=== PATIENT | female | born 1955 | race Caucasian/White ===

== ENCOUNTER 2020-04-10 05:51 | Day surgery (SDC) | payer MEDICARE, BC, OTHER ==
[2020-04-10] MEDS ORDERED: oxyCODONE ER 10 MG TAB.ER PO SCH (06:00)
[2020-04-10] MEDS ORDERED: Acetaminophen 325 MG Tab PO SCH (06:00)
[2020-04-10] MEDS ORDERED: Pregabalin 25 MG Cap PO SCH (06:00)
[2020-04-10] MEDS ORDERED: Magnesium Hydroxide 400 MG/5 ML Susp 30 ML Cup PO PRN (06:34)
[2020-04-10] MEDS ORDERED: Morphine 2 MG/ML SYRINGE IVPUSH PRN (06:34)
[2020-04-10] MEDS ORDERED: Bisacodyl 5 MG Tab PO PRN (06:34)
[2020-04-10] MEDS ORDERED: Sennosides 8.6 MG Tab PO PRN (06:34)
[2020-04-10] MEDS ORDERED: Ondansetron 4 MG/2 ML SDV IVPUSH PRN ×2 (06:34→08:07)
[2020-04-10] MEDS ORDERED: Naloxone 0.4 MG/ML SDV IVPUSH PRN (06:34)
[2020-04-10] MEDS ORDERED: Cyclobenzaprine 10 MG Tab PO PRN (06:34)
[2020-04-10] MEDS ORDERED: Famotidine 20 MG Tab PO SCH (06:45)
[2020-04-10] MEDS ORDERED: Sodium Chloride 0.9% 10 ML Syringe FLUSH PRN (07:00)
[2020-04-10] MEDS ORDERED: Lidocaine 1%/Sod Bicarbonate in NS 8.4% 1 ML Syringe IDERM PRN (07:00)
[2020-04-10] MEDS ORDERED: Lactated Ringers 1,000 ML IV SCH (07:00)
[2020-04-10] MEDS ORDERED: Ondansetron 4 MG/2 ML SDV ONE (07:15)
[2020-04-10] MEDS ORDERED: Midazolam 1 MG/ML 2 ML SDV ONE (07:15)
[2020-04-10] MEDS ORDERED: Ketamine 500 mg/10 ML MDV ONE (07:15)
[2020-04-10] MEDS ORDERED: fentaNYL 100 MCG/2 ML SDV ONE (07:15)
[2020-04-10] MEDS ORDERED: ceFAZolin 1 GM Vial ONE (07:15)
[2020-04-10] MEDS ORDERED: Dexamethasone 4 MG/ML 5 ML MDV ONE (07:15)
[2020-04-10] MEDS ORDERED: Lidocaine 1% 4 ML ONE (07:15)
[2020-04-10] MEDS ORDERED: Propofol 200 MG/20 ML SDV ONE (07:15)
[2020-04-10] MEDS ORDERED: Lactated Ringers 1,000 ML ONE (07:51)
[2020-04-10] MEDS: Iodine/Sodium Iodide 2% Tincture 30 ML Bottle ONE ×2 (08:03→08:07)
[2020-04-10] MEDS: ceFAZolin 1 GM Vial ONE ×2 (08:04→08:09)
[2020-04-10] MEDS: Bupivacaine 0.25% 10 ML SDV ONE ×2 (08:04→08:14)
[2020-04-10] MEDS: Morphine 8 MG, EPINEPHrine 0.3 MG, Cefuroxime 750 MG, Ketorolac 30 MG, Sodium Chloride ... PRN ×10 (08:05→08:15)
[2020-04-10] MEDS: Vancomycin 1 GM SDV ONE ×2 (08:05→08:16)
[2020-04-10] MEDS ORDERED: fentaNYL 100 MCG/2 ML SDV IVPUSH PRN (08:07)
[2020-04-10] MEDS ORDERED: HYDROmorphone 0.5 MG/0.5 ML Syringe IVPUSH PRN (08:07)
--- NOTE | 2020-04-10 08:10 | PCM.PREANE ---
Preanesthetic Assessment - Procedure Proposed Procedure: Left Total Knee Arthroplasty - Anesthesia/Transfusion/Family Hx Anesthesia History: Prior Anesthesia Without Reaction Family History of Anesthesia Reaction: No - Review of Systems General: No Symptoms Pulmonary: No Symptoms Cardiovascular: No Symptoms Gastrointestinal: No Symptoms Neurological: No Symptoms Other: Reports: None (Osteoarthritis, Obesity BMI 30) - Physical Assessment NPO Status Date: 04/09/20 NPO Status Time: 23:00 Vital Signs: Last Vital Signs Temp 36.2 C 04/10/20 06:00 Pulse 61 04/10/20 06:00 Resp 16 04/10/20 06:00 BP 114/64 04/10/20 06:00 Pulse Ox 94 L 04/10/20 06:00 Height: 1.57 m Weight: 74.389 kg ASA Class: 2 Mental Status: Alert & Oriented x3 Airway Class: Mallampati = 2 Dentition: Reports: Normal Dentition Thyro-Mental Finger Breadths: 2 Mouth Opening Finger Breadths: 3 ROM/Head Extension: Full Lungs: Clear to Auscultation, Normal Respiratory Effort Cardiovascular: Regular Rate, Regular Rhythm - Lab Values: Laboratory Last Values COVID-19 PCR Not detected (NOT DETECT) 04/06/20 09:38 MRSA (PCR) Negative 03/29/20 10:49 - Allergies Allergies/Adverse Reactions: Allergies Allergy/AdvReac Type Severity Reaction Status Date / Time No Known Allergies Allergy Verified 04/10/20 06:24 - Anesthesia Plan Pre-Op Medication Ordered: Anxiolytic - Acknowledgements Anesthesia Type Planned: Spinal (Post Operative Adductor Canal Block for Post Operative pain releif) Pt an Appropriate Candidate for the Planned Anesthesia: Yes Alternatives and Risks of Anesthesia Discussed w Pt/Guardian: Yes Pt/Guardian Understands and Agrees with Anesthesia Plan: Yes PreAnesthesia Questionnaire HEENT History: Reports: Cataract, Glaucoma Cardiovascular History: Reports: None Respiratory History: Reports: None Gastrointestinal History: Reports: Hemorrhoids Genitourinary History: Reports: None 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: Musculoskeletal History: Reports: Osteoarthritis Neurological History: Reports: None Psychiatric History: Reports: None Endocrine/Metabolic History: Reports: None Hematologic History: Reports: None Immunologic History: Reports: None Oncologic (Cancer) History: Reports: None Dermatologic History: Reports: None - Past Surgical History Head Surgeries/Procedures: Reports: None HEENT Surgical History: Reports: Adenoidectomy, LASIK, Tonsillectomy Cardiovascular Surgical History: Reports: None Respiratory Surgical History: Reports: None GI Surgical History: Reports: Colonoscopy Female Surgical History: Reports: None Male Surgical History: Reports: None Endocrine Surgical History: Reports: None Neurological Surgical History: Reports: None Musculoskeletal Surgical History: Reports: Carpal Tunnel, Other (See Below) Other Musculoskeletal Surgeries/Procedures:: bunion surgery Oncologic Surgical History: Reports: None Dermatological Surgical History: Reports: None - SUBSTANCE USE Smoking Status *Q: Former Smoker Recreational Drug Use History: No - HOME MEDS Home Medications: Home Meds Celecoxib 200 mg PO DAILY PRN 04/07/20 [History] Cholecalciferol (Vitamin D3) [Vitamin D3] 5,000 unit PO DAILY 04/07/20 [History] Latanoprost 1 drop EYEBOTH DAILY 04/07/20 [History] Melatonin 10 mg PO BEDTIME 04/07/20 [History] - CURRENT (IN HOUSE) MEDS Current Meds: Current Medications Acetaminophen (Tylenol) 975 mg PO ONETIME ANDREIA Stop: 04/10/20 14:00 Last Admin: 04/10/20 06:05 Dose: 975 mg Documented by: Aspirin (Ecotrin) 325 mg PO BID [facility] Bisacodyl (Dulcolax) 5 mg PO DAILY PRN PRN Reason: Constipation Cholecalciferol (Vitamin D3) 5,000 unit PO DAILY [facility] Morphine Sulfate 8 mg/Epinephrine HCl 0.3 mg/Cefuroxime Sodium 750 mg/Ketorolac Tromethamine 30 mg/Sodium Chloride 7.9 ml 0 mg .XX ASDIRECTED PRN PRN Reason: Pain Stop: 04/10/20 12:00 Last Admin: 04/10/20 08:05 Dose: 788.3 mg Documented by: Cyclobenzaprine HCl (Flexeril) 10 mg PO TID PRN PRN Reason: Spasms Docusate Sodium (Colace) 100 mg PO BID [facility] Famotidine (Pepcid) 20 mg PO Q12H [facility] Lactated Ringer's (Ringers, Lactated) 1,000 mls @ 125 mls/hr IV ASDIRECTED ANDREIA Stop: 04/10/20 23:00 Last Admin: 04/10/20 06:24 Dose: 125 mls/hr Documented by: Cefazolin Sodium/Dextrose 2 gm (/ Premix) 50 mls @ 100 mls/hr IV Q8H [facility] Stop: 04/10/20 23:14 Ketorolac Tromethamine (Toradol) 15 mg IVPUSH Q6H PRN PRN Reason: Pain Latanoprost (Xalatan 0.005% Ophth Soln) 0 ml EYEBOTH DAILY [facility] Lidocaine/Sodium Bicarbonate (Buffered Lidocaine 1% In Ns 8.4%) 0.25 ml IDERM ONETIME PRN PRN Reason: Prior to IV Start Stop: 04/10/20 18:00 Last Admin: 04/10/20 06:25 Dose: 0.25 ml Documented by: Magnesium Hydroxide (Milk Of Magnesia) 30 ml PO BID PRN PRN Reason: Constipation Morphine Sulfate (Morphine) 2 mg IVPUSH Q2H PRN PRN Reason: Breakthrough Pain Naloxone HCl (Narcan) 0.1 mg IVPUSH Q5M PRN PRN Reason: Oversedation Ondansetron HCl (Zofran) 4 mg IVPUSH Q6H PRN PRN Reason: Nausea/Vomiting Oxycodone HCl (Oxycontin) 10 mg PO ONETIME [facility] Stop: 04/10/20 14:00 Last Admin: 04/10/20 06:04 Dose: 10 mg Documented by: Oxycodone/Acetaminophen (Percocet 325-5 Mg) 1 - 2 tab PO Q4H PRN PRN Reason: Pain Pregabalin (Lyrica) 50 mg PO ONETIME [facility] Stop: 04/10/20 14:00 Last Admin: 04/10/20 06:04 Dose: 50 mg Documented by: Senna (Senna) 8.6 mg PO BID PRN PRN Reason: Constipation Sodium Chloride (Saline Flush) 10 ml FLUSH ASDIRECTED PRN PRN Reason: Keep Vein Open Stop: 04/10/20 18:00 Discontinued Medications Bupivacaine HCl (Sensorcaine-Mpf 0.25%) Confirm Administered Dose 30 ml .ROUTE .STK-MED ONE Stop: 04/10/20 06:14 Last Admin: 04/10/20 08:04 Dose: 30 ml Documented by: Cefazolin Sodium (Ancef) Confirm Administered Dose 2 gm .ROUTE .STK-MED ONE Stop: 04/10/20 06:14 Last Admin: 04/10/20 08:04 Dose: 2 gm Documented by: Cefazolin Sodium (Ancef) Confirm Administered Dose 2 gm .ROUTE .STK-MED ONE Stop: 04/10/20 07:16 Dexamethasone (Dexamethasone) Confirm Administered Dose 20 mg .ROUTE .STK-MED ONE Stop: 04/10/20 07:16 Famotidine (Pepcid) 20 mg PO Q12H [facility] Fentanyl (Sublimaze) Confirm Administered Dose 100 mcg .ROUTE .STK-MED ONE Stop: 04/10/20 07:16 Lidocaine HCl (Xylocaine-Mpf 1%) Confirm Administered Dose 4 mls @ as directed .ROUTE .STK-MED ONE Stop: 04/10/20 07:16 Lactated Ringer's (Ringers, Lactated) Confirm Administered Dose 1,000 mls @ as directed .ROUTE .ST-MED ONE Stop: 04/10/20 07:52 Iodine (Iodine 2% Mild Tincture) Confirm Administered Dose 30 ml .ROUTE .ST-MED ONE Stop: 04/10/20 06:14 Last Admin: 04/10/20 08:03 Dose: 18 ml Documented by: Ketamine HCl (Ketalar) Confirm Administered Dose 500 mg .ROUTE .STK-MED ONE Stop: 04/10/20 07:16 Midazolam HCl (Versed 1 Mg/Ml) Confirm Administered Dose 2 mg .ROUTE .ST-MED ONE Stop: 04/10/20 07:16 Ondansetron HCl (Zofran) Confirm Administered Dose 4 mg .ROUTE .STK-MED ONE Stop: 04/10/20 07:16 Propofol (Diprivan 20 Ml) Confirm Administered Dose 600 mg .ROUTE .ST-MED ONE Stop: 04/10/20 07:16 Tranexamic Acid (Cyklokapron) Confirm Administered Dose 1,000 mg .ROUTE .STK-MED ONE Stop: 04/10/20 06:14 Last Admin: 04/10/20 08:05 Dose: 1,000 mg Documented by: Vancomycin HCl (Vancomycin) Confirm Administered Dose 1 gm .ROUTE .STK-MED ONE Stop: 04/10/20 06:14 Last Admin: 04/10/20 08:05 Dose: 1 gm Documented by:
--- NOTE | 2020-04-10 08:53 | PCM.POSTAN ---
POST ANESTHESIA ASSESSMENT - MENTAL STATUS Mental Status: Alert, Oriented - VITAL SIGNS Vital Signs: Last Vital Signs Temp 36.2 C 04/10/20 06:00 Pulse 61 04/10/20 06:00 Resp 16 04/10/20 06:00 BP 114/64 04/10/20 06:00 Pulse Ox 94 L 04/10/20 06:00 - RESPIRATORY Respiratory Status: Respiratory Rate WNL, Airway Patent, O2 Saturation Stable, Supplemental Oxygen - CARDIOVASCULAR CV Status: Pulse Rate WNL, Low Blood Pressure (IV fluid bolus infusing 500 ml BP 78/44. ) - GASTROINTESTINAL GI Status: No Symptoms - PAIN Pain Score: 0 - POST OP HYDRATION Hydration Status: Adequate & Stable
[2020-04-10] MEDS ORDERED: Ropivacaine 0.5% 5 MG/ML 30 ML SDV ONE (08:58)
[2020-04-10] MEDS ORDERED: EPINEPHrine 1 MG/ML SDV ONE (08:58)
--- NOTE | 2020-04-10 09:31 | PCM.SN.2 ---
- Free Text/Narrative Note: Left selective femoral nerve block at the adductor canal for post-procedure pain control under US guidance requested by Dr. Lawton. Time Out: 906 Start: 907 End: 913 Chart reviewed. Consent signed. Questions answered. Appropriate monitors applied. Time out performed. Left mid-shaft femur identified with ultrasound, scanning medially of femur, the femoral artery in the adductor canal visualized, and the femoral nerve located laterally to the artery. The skin was prepped lateral to the ultrasound probe with chlorahexadine times two. The 21ga 4 insulated block needle was inserted under direct ultrasound guidance into the adductor canal. 25mL of 0.5% ropivacaine with 1:200,000 epinephrine was injected circumferentially around the nerve with intermittent negative aspiration noted. Patient tolerated the procedure well. Sterile technique noted along with sterile gloves, mask, and sterile probe cover. See picture on progress note and vital signs on nurses notes. Block completed in PACU. Tariq Donis CRNA
--- NOTE | 2020-04-10 09:34 | CR ---
Left knee: AP and lateral views of left knee were obtained. Comparison: Prior left knee radiographic study of 10/09/18. Knee prosthesis is seen. Components are aligned. Soft tissue air noted from recent surgical procedure. Underlying bony structures show nothing acute. Impression: 1. Satisfactory postop radiographic appearance of recently placed left knee prosthesis. Diagnostic code #2 This report was dictated in MDT
[2020-04-10] MEDS: Acetaminophen/oxyCODONE 325-5 MG Tab PO PRN ×3 (12:37→22:28)
[2020-04-10] MEDS: Latanoprost 0.005% Ophth Soln 2.5 ML Bottle EYEBOTH SCH (14:34)
[2020-04-10] MEDS: ceFAZolin 2 GM in Premix Bag 1 BAG IV SCH (15:32)
[2020-04-10] MEDS: Ketorolac 15 MG/ML SDV IVPUSH PRN (17:32)
[2020-04-10] MEDS: Famotidine 20 MG Tab PO SCH (21:44)
[2020-04-10] MEDS: Docusate Sodium 100 MG Cap PO SCH (21:45)
[2020-04-11] MEDS: Ketorolac 15 MG/ML SDV IVPUSH PRN (02:28)
[2020-04-11] MEDS: Acetaminophen/oxyCODONE 325-5 MG Tab PO PRN ×2 (05:40→09:55)
--- NOTE | 2020-04-11 07:14 | PCM.SURGPN ---
- General Info Date of Service: 04/11/20 POD#: 1 Functional Status: Reports: Pain Controlled, Tolerating Diet, Ambulating, Urinating, Incentive Spirometry, Other (The pt states she slept "pretty good". Nursing reports pt is doing well.) - Patient Data Vitals - Most Recent: Last Vital Signs Temp 98.4 F 04/11/20 05:42 Pulse 45 L 04/11/20 05:42 Resp 16 04/11/20 05:42 BP 105/59 L 04/11/20 05:42 Pulse Ox 93 L 04/11/20 05:42 Weight - Most Recent: 164 lb I&O - Last 24 Hours: Intake & Output 04/10/20 04/11/20 04/11/20 22:59 06:59 14:59 Intake Total 120 Output Total 200 600 Balance -80 -600 Lab Results Last 24 Hrs: Laboratory Results - last 24 hr 04/11/20 04/11/20 Range/Units 05:28 05:28 WBC 9.17 (3.98-10.04) K/mm3 RBC 3.72 L (3.98-5.22) M/mm3 Hgb 11.3 (11.2-15.7) gm/dl Hct 34.8 (34.1-44.9) % MCV 93.5 (79.4-94.8) fl MCH 30.4 (25.6-32.2) pg MCHC 32.5 (32.2-35.5) g/dl RDW Std Deviation 43.0 (36.4-46.3) fL Plt Count 181 L (182-369) K/mm3 MPV 10.5 (9.4-12.3) fl Sodium 134 L (136-145) mEq/L Potassium 4.3 (3.5-5.1) mEq/L Chloride 100 (98-107) mEq/L Carbon Dioxide 27 (21-32) mEq/L Anion Gap 11.3 (5-15) BUN 15 (7-18) mg/dL Creatinine 0.9 (0.55-1.02) mg/dL Est Cr Clr Drug Dosing 49.29 mL/min Estimated GFR (MDRD) > 60 (>60) mL/min BUN/Creatinine Ratio 16.7 (14-18) Glucose 114 (80-115) mg/dL Calcium 8.5 (8.5-10.1) mg/dL Total Bilirubin 0.8 (0.2-1.0) mg/dL AST 16 (15-37) U/L ALT 22 (14-59) U/L Alkaline Phosphatase 38 L (46-116) U/L Total Protein 5.8 L (6.4-8.2) g/dl Albumin 2.9 L (3.4-5.0) g/dl Globulin 2.9 gm/dL Albumin/Globulin Ratio 1.0 (1-2) Med Orders - Current: Current Medications Aspirin (Ecotrin) 325 mg PO BID [facility] Bisacodyl (Dulcolax) 5 mg PO DAILY PRN PRN Reason: Constipation Cholecalciferol (Vitamin D3) 5,000 unit PO DAILY [facility] Cyclobenzaprine HCl (Flexeril) 10 mg PO TID PRN PRN Reason: Spasms Docusate Sodium (Colace) 100 mg PO BID [facility] Last Admin: 04/10/20 21:45 Dose: 100 mg Documented by: Famotidine (Pepcid) 20 mg PO Q12H [facility] Last Admin: 04/10/20 21:44 Dose: 20 mg Documented by: Cefazolin Sodium/Dextrose 2 gm (/ Premix) 50 mls @ 100 mls/hr IV Q8H [facility] Stop: 04/11/20 08:29 Last Admin: 04/11/20 00:00 Dose: 100 mls/hr Documented by: Ketorolac Tromethamine (Toradol) 15 mg IVPUSH Q6H PRN PRN Reason: Pain Last Admin: 04/11/20 02:28 Dose: 15 mg Documented by: Latanoprost (Xalatan 0.005% Ophth Soln) 0 ml EYEBOTH DAILY [facility] Last Admin: 04/10/20 14:34 Dose: Not Given Documented by: Magnesium Hydroxide (Milk Of Magnesia) 30 ml PO BID PRN PRN Reason: Constipation Morphine Sulfate (Morphine) 2 mg IVPUSH Q2H PRN PRN Reason: Breakthrough Pain Naloxone HCl (Narcan) 0.1 mg IVPUSH Q5M PRN PRN Reason: Oversedation Ondansetron HCl (Zofran) 4 mg IVPUSH Q6H PRN PRN Reason: Nausea/Vomiting Oxycodone/Acetaminophen (Percocet 325-5 Mg) 1 - 2 tab PO Q4H PRN PRN Reason: Pain Last Admin: 04/11/20 05:40 Dose: 1 tab Documented by: Senna (Senna) 8.6 mg PO BID PRN PRN Reason: Constipation Discontinued Medications Acetaminophen (Tylenol) 975 mg PO ONETIME [facility] Stop: 04/10/20 14:00 Last Admin: 04/10/20 06:05 Dose: 975 mg Documented by: Bupivacaine HCl (Sensorcaine-Mpf 0.25%) Confirm Administered Dose 30 ml .ROUTE .STK-MED ONE Stop: 04/10/20 06:14 Last Admin: 04/10/20 08:14 Dose: 30 ml Documented by: Cefazolin Sodium (Ancef) Confirm Administered Dose 2 gm .ROUTE .STK-MED ONE Stop: 04/10/20 06:14 Last Admin: 04/10/20 08:09 Dose: 2 gm Documented by: Cefazolin Sodium (Ancef) Confirm Administered Dose 2 gm .ROUTE .STK-MED ONE Stop: 04/10/20 07:16 Morphine Sulfate 8 mg/Epinephrine HCl 0.3 mg/Cefuroxime Sodium 750 mg/Ketorolac Tromethamine 30 mg/Sodium Chloride 7.9 ml 0 mg .XX ASDIRECTED PRN PRN Reason: Pain Stop: 04/10/20 12:00 Last Admin: 04/10/20 08:15 Dose: 788.3 mg Documented by: Dexamethasone (Dexamethasone) Confirm Administered Dose 20 mg .ROUTE .STK-MED ONE Stop: 04/10/20 07:16 Epinephrine HCl (Adrenalin) Confirm Administered Dose 1 mg .ROUTE .STK-MED ONE Stop: 04/10/20 08:59 Famotidine (Pepcid) 20 mg PO Q12H [facility] Fentanyl (Sublimaze) Confirm Administered Dose 100 mcg .ROUTE .STK-MED ONE Stop: 04/10/20 07:16 Fentanyl (Sublimaze) 50 mcg IVPUSH Q5M PRN PRN Reason: Pain Stop: 04/10/20 23:00 Hydromorphone HCl (Dilaudid) 0.5 mg IVPUSH Q10M PRN PRN Reason: Pain (severe 7-10) Stop: 04/10/20 23:00 Lactated Ringer's (Ringers, Lactated) 1,000 mls @ 125 mls/hr IV ASDIRECTED ANDREIA Stop: 04/10/20 23:00 Last Admin: 04/10/20 06:24 Dose: 125 mls/hr Documented by: Lidocaine HCl (Xylocaine-Mpf 1%) Confirm Administered Dose 4 mls @ as directed .ROUTE .STK-MED ONE Stop: 04/10/20 07:16 Lactated Ringer's (Ringers, Lactated) Confirm Administered Dose 1,000 mls @ as directed .ROUTE .ST-MED ONE Stop: 04/10/20 07:52 Iodine (Iodine 2% Mild Tincture) Confirm Administered Dose 30 ml .ROUTE .STK-MED ONE Stop: 04/10/20 06:14 Last Admin: 04/10/20 08:07 Dose: 18 ml Documented by: Ketamine HCl (Ketalar) Confirm Administered Dose 500 mg .ROUTE .STK-MED ONE Stop: 04/10/20 07:16 Lidocaine/Sodium Bicarbonate (Buffered Lidocaine 1% In Ns 8.4%) 0.25 ml IDERM ONETIME PRN PRN Reason: Prior to IV Start Stop: 04/10/20 18:00 Last Admin: 04/10/20 06:25 Dose: 0.25 ml Documented by: Midazolam HCl (Versed 1 Mg/Ml) Confirm Administered Dose 2 mg .ROUTE .STK-MED ONE Stop: 04/10/20 07:16 Ondansetron HCl (Zofran) Confirm Administered Dose 4 mg .ROUTE .ST-MED ONE Stop: 04/10/20 07:16 Ondansetron HCl (Zofran) 4 mg IVPUSH ONETIME PRN PRN Reason: Nausea/Vomiting Stop: 04/10/20 23:00 Oxycodone HCl (Oxycontin) 10 mg PO ONETIME [facility] Stop: 04/10/20 14:00 Last Admin: 04/10/20 06:04 Dose: 10 mg Documented by: Pregabalin (Lyrica) 50 mg PO ONETIME [facility] Stop: 04/10/20 14:00 Last Admin: 04/10/20 06:04 Dose: 50 mg Documented by: Propofol (Diprivan 20 Ml) Confirm Administered Dose 400 mg .ROUTE .STK-MED ONE Stop: 04/10/20 07:16 Ropivacaine (Naropin 0.5%) Confirm Administered Dose 30 ml .ROUTE .STK-MED ONE Stop: 04/10/20 08:59 Sodium Chloride (Saline Flush) 10 ml FLUSH ASDIRECTED PRN PRN Reason: Keep Vein Open Stop: 04/10/20 18:00 Tranexamic Acid (Cyklokapron) Confirm Administered Dose 1,000 mg .ROUTE .STK-MED ONE Stop: 04/10/20 06:14 Last Admin: 04/10/20 08:18 Dose: 1,000 mg Documented by: Vancomycin HCl (Vancomycin) Confirm Administered Dose 1 gm .ROUTE .STK-MED ONE Stop: 04/10/20 06:14 Last Admin: 04/10/20 08:16 Dose: 1 gm Documented by: - Exam Wound/Incisions: Dressing Dry and Intact General: Alert, Cooperative, No Acute Distress Lungs: Normal Respiratory Effort Extremities: Other (NVS intact for LLE. Raven's negative.) Sepsis Event Note - Evaluation Sepsis Screening Result: No Definite Risk - Focused Exam Vital Signs: Vital Signs Temp Pulse Resp BP Pulse Ox 04/11/20 05:42 98.4 F 45 L 16 105/59 L 93 L 04/11/20 00:05 97.7 F 43 L 17 100/60 93 L 04/10/20 21:12 97.9 F 46 L 20 104/64 89 L Date Exam was Performed: 04/11/20 Time Exam was Performed: 07:12 - Problem List Review Problem List Initiated/Reviewed/Updated: Yes - My Orders Last 24 Hours: Active Orders 24 hr Category Date Time Status Patient Status [ADT] Routine ADT 04/10/20 06:34 Active Ambulate [RC] PER UNIT ROUTINE Care 04/10/20 06:34 Active Antiembolic Devices [RC] PER UNIT ROUTINE Care 04/10/20 06:33 Active Antiembolic Devices [RC] PER UNIT ROUTINE Care 04/10/20 06:35 Active Communication Order [RC] ASDIRECTED Care 04/10/20 08:07 Active Cooling Warming Measures [RC] ASDIRECTED Care 04/10/20 08:07 Active May Shower [RC] ASDIRECTED Care 04/10/20 06:34 Active Oxygen Therapy [RC] ASDIRECTED Care 04/10/20 08:07 Active Oxygen Therapy [RC] PRN Care 04/10/20 06:34 Active Pulse Oximetry [RC] ASDIRECTED Care 04/10/20 08:07 Active RT Incentive Spirometry [RC] Q1HWA Care 04/10/20 06:33 Active Ready for Discharge [RC] PER UNIT ROUTINE Care 04/11/20 07:12 Ordered Up to Chair [RC] ASDIRECTED Care 04/10/20 06:34 Active Vital Signs [RC] Q4HR Care 04/10/20 06:34 Active OT Evaluation and Treatment [CONS] Routine Cons 04/10/20 06:33 Active PT Evaluation and Treatment [CONS] Routine Cons 04/10/20 06:33 Active Regular Diet [DIET] Diet 04/10/20 Lunch Active Acetaminophen/oxyCODONE [Percocet 325-5 MG] Med 04/10/20 06:34 Active 1 - 2 tab PO Q4H PRN Aspirin [Ecotrin] Med 04/11/20 06:34 Active 325 mg PO BID Cholecalciferol (Vitamin D3) [Vitamin D3] Med 04/11/20 09:00 Active 5,000 unit PO DAILY Cyclobenzaprine [Flexeril] Med 04/10/20 06:34 Active 10 mg PO TID PRN Docusate Sodium [Colace] Med 04/10/20 21:00 Active 100 mg PO BID Famotidine [Pepcid] Med 04/10/20 21:00 Active 20 mg PO Q12H Ketorolac [Toradol] Med 04/10/20 06:34 Active 15 mg IVPUSH Q6H PRN Latanoprost [Xalatan 0.005% Ophth Soln] Med 04/10/20 14:30 Active 0 ml EYEBOTH DAILY Magnesium Hydroxide [Milk of Magnesia] Med 04/10/20 06:34 Active 30 ml PO BID PRN Morphine Med 04/10/20 06:34 Active 2 mg IVPUSH Q2H PRN Naloxone [Narcan] Med 04/10/20 06:34 Active 0.1 mg IVPUSH Q5M PRN Ondansetron [Zofran] Med 04/10/20 06:34 Active 4 mg IVPUSH Q6H PRN Sennosides [Senna] Med 04/10/20 06:34 Active 8.6 mg PO BID PRN bisacodyL [Dulcolax] Med 04/10/20 06:34 Active 5 mg PO DAILY PRN ceFAZolin [Ancef] 2 gm Med 04/10/20 16:00 Active Premix Bag 1 bag IV Q8H Antiembolic Hose [OM.PC] Routine Oth 04/10/20 06:34 Ordered Ice Therapy [OM.PC] Per Unit Routine Ot 04/10/20 06:35 Ordered Medication Administration Instruction [OM.PC] Routine Oth 04/10/20 07:00 Ordered Sequential Compression Device [OM.PC] Per Unit Routine Oth 04/10/20 06:33 Ordered Resuscitation Status Routine Resus Stat 04/10/20 06:34 Ordered Medication Orders Aspirin (Ecotrin) 325 mg PO BID [facility] Bisacodyl (Dulcolax) 5 mg PO DAILY PRN PRN Reason: Constipation Cholecalciferol (Vitamin D3) 5,000 unit PO DAILY [facility] Cyclobenzaprine HCl (Flexeril) 10 mg PO TID PRN PRN Reason: Spasms Docusate Sodium (Colace) 100 mg PO BID [facility] Last Admin: 04/10/20 21:45 Dose: 100 mg Documented by: ROSHAN Famotidine (Pepcid) 20 mg PO Q12H [facility] Last Admin: 04/10/20 21:44 Dose: 20 mg Documented by: ROSHAN Cefazolin Sodium/Dextrose 2 gm (/ Premix) 50 mls @ 100 mls/hr IV Q8H [facility] Stop: 04/11/20 08:29 Last Admin: 04/11/20 00:00 Dose: 100 mls/hr Documented by: Infusion: 04/10/20 16:02 Dose: 100 mls/hr Documented by: Admin: 04/10/20 15:32 Dose: 100 mls/hr Documented by: SHANIKA Ketorolac Tromethamine (Toradol) 15 mg IVPUSH Q6H PRN PRN Reason: Pain Last Admin: 04/11/20 02:28 Dose: 15 mg Documented by: Admin: 04/10/20 17:32 Dose: 15 mg Documented by: SHANIKA Latanoprost (Xalatan 0.005% Ophth Soln) 0 ml EYEBOTH DAILY [facility] Last Admin: 04/10/20 14:34 Dose: Not Given Documented by: JACOKAY Magnesium Hydroxide (Milk Of Magnesia) 30 ml PO BID PRN PRN Reason: Constipation Morphine Sulfate (Morphine) 2 mg IVPUSH Q2H PRN PRN Reason: Breakthrough Pain Naloxone HCl (Narcan) 0.1 mg IVPUSH Q5M PRN PRN Reason: Oversedation Ondansetron HCl (Zofran) 4 mg IVPUSH Q6H PRN PRN Reason: Nausea/Vomiting Oxycodone/Acetaminophen (Percocet 325-5 Mg) 1 - 2 tab PO Q4H PRN PRN Reason: Pain Last Admin: 04/11/20 05:40 Dose: 1 tab Documented by: Admin: 04/10/20 22:28 Dose: 1 tab Documented by: Admin: 04/10/20 21:44 Dose: 1 tab Documented by: Admin: 04/10/20 12:37 Dose: 2 tab Documented by: SHANIKA Messina (Senna) 8.6 mg PO BID PRN PRN Reason: Constipation - Assessment Assessment (Free Text/Narrative):: POD#1 - left TKA - Plan Plan (Free Text/Narrative):: 1. Hgb 11.3. 2. 325mg ASA PO BID, frequent mobility, TEDs for VTE prophylaxis. 3. Discharge to home today when inpt therapy goals met. 3. Outpatient therapy. The pt's case was discussed with Dr. Lawton.
[2020-04-11] MEDS: Aspirin 325 MG Tab.EC PO SCH ×2 (07:37→08:16)
--- NOTE | 2020-04-11 07:55 | PCM48HPAN ---
Post Anesthesia Note - EVALUATION WITHIN 48HRS OF ANESTHETIC Vital Signs in Normal Range: Yes Patient Participated in Evaluation: Yes Respiratory Function Stable: Yes Airway Patent: Yes Cardiovascular Function Stable: Yes Hydration Status Stable: Yes Pain Control Satisfactory: Yes Nausea and Vomiting Control Satisfactory: Yes Mental Status Recovered: Yes Vital Signs: Last Vital Signs Temp 36.9 C 04/11/20 05:42 Pulse 45 L 04/11/20 05:42 Resp 16 04/11/20 05:42 BP 105/59 L 04/11/20 05:42 Pulse Ox 93 L 04/11/20 05:42
[2020-04-11] MEDS: Latanoprost 0.005% Ophth Soln 2.5 ML Bottle EYEBOTH SCH (08:11)
[2020-04-11] MEDS: Docusate Sodium 100 MG Cap PO SCH (08:17)
[2020-04-11] MEDS: Famotidine 20 MG Tab PO SCH (08:18)
[2020-04-11] MEDS: ceFAZolin 2 GM in Premix Bag 1 BAG IV SCH ×3 (08:19)
[2020-04-11] MEDS ORDERED: Cholecalciferol (Vitamin D3) 5,000 UNIT Tab PO SCH (09:00)
[2020-04-11 09:29] VITALS: BP 117/63; PULSE 49
--- NOTE | 2020-04-17 07:14 | PCM.OPNOTE ---
- General Post-Op/Procedure Note Date of Surgery/Procedure: 04/10/20 Operative Procedure(s): left total knee arthroplasty Pre Op Diagnosis: left knee osteoarthrosis Post-Op Diagnosis: Same Anesthesia Technique: Local, MAC, Spinal Primary Surgeon: Evelio Lawton Anesthesia Provider: Edelmira Donis Tool Clerk: Lisa Romero Tool Clerk: Rosenda Lagunas in mLs: 5 Complications: None Condition: Good Free Text/Narrative:: 4 femur 3 tibia cemented 32x10 patella cemented 9mm
--- NOTE | 2020-04-17 08:29 | OR ---
DATE OF OPERATION: 04/10/2020 SURGEON: Evelio Lawton MD OPERATION PERFORMED: Left total knee arthroplasty. PREOPERATIVE DIAGNOSIS: Left knee osteoarthrosis. POSTOPERATIVE DIAGNOSIS: Left knee osteoarthrosis. ANESTHESIA: Local MAC with spinal. ANESTHESIA PROVIDER: Michelle Pineda. SALES PERSON: Lisa Romero PA-C; and Rosenda Lagunas LPN. ESTIMATED BLOOD LOSS: 5 mL. COMPLICATIONS: None. CONDITION: Stable. IMPLANTS: 1. Chris size 4 press-fit CR femur. 2. [place] size 3 cemented universal tibial base plate. 3. Chris size 3 9 mm CS polyethylene insert. 4. [place] size 32 x 10 mm press fit asymmetric patella. DESCRIPTION OF PROCEDURE: The patient was identified in the preop holding area. Proper site was marked and identified by the surgeon. The patient was taken back to the operating theater. After adequate anesthesia, the patient's left lower extremity had a nonsterile tourniquet applied and it was sterilely prepped and draped in the usual sterile fashion. OR time-out was performed. The patient received 2 g IV Ancef. At this time, the left lower extremity was exsanguinated. Tourniquet was insufflated to 300 mmHg. Standard medial parapatellar incision was made. Medial parapatellar arthrotomy was created. Deep fibers of the MCL were raised and anterior fat pad was resected. At this time, attention was turned to the patella. Patella measured a 24, it was resected to a 14 for 32 x 10 mm patella. Drill holes were then drilled and found to be in adequate position. The drill was then drilled in the distal femur and the intramedullary distal femoral cutting guide was then placed. 8 mm was resected off the distal femur and was found to be an adequate resection. Sizing guide was placed. It was found to be a size 4 press-fit CR femur that was shown on the implant record at the beginning of this dictation. The drill holes were drilled for the epicondylar axis using [place] line and epicondyles as reference. At this time, the 4-in- 1 cutting block was placed. An anterior posterior and anterior and posterior chamfer cuts were then completed. Attention was turned to the tibia. The posterior medial lateral retractors were placed. The extramedullary tibial guide was placed. It was placed in the old footprint of the ACL. It was aligned with the center of the ankle and 0 degrees of slope, 9 mm was then resected off the unaffected side. There was found to be an acceptable reduction. At this time, posterior osteophytes were removed along with medial and lateral meniscus. A trial implant was placed with a correct sized tibia that was mentioned at the beginning of the dictation. A Chris size 3 9 mm CS polyethylene insert was then placed. The patient's knee was brought through range of motion. The patella was tracking centrally and was stable to varus and valgus stress. Alignment was found to be roughly at 0 degrees. The tibia was stamped and drilled in proper rotation. It was decided to cement the tibia due to bone quality of the tibia. The universal tibial base plate was impacted in place. Next, the Chris size 4 press-fit CR femur impacted into place and the [place] size 3 9 mm CS polyethylene insert was placed. The patient's knee was brought into full extension. The patella was then press-fit in place at this time. One liter dilute Betadine solution was irrigated through the knee along with 3 L of pulse lavage irrigation with Ancef. Periarticular injection was then completed. The patient's knee was brought through a range of motion. Once the cement had time to set up and it was found to be stable to varus valgus stress, the patella was tracking centrally with full range of motion. At this time, a #2 barbed suture was used for closure of the medial parapatellar arthrotomy. Topical tranexamic acid was placed. 2-0 Vicryl was used subcutaneously, Prineo was used for the skin. The patient tolerated the procedure well and was sent to the PACU in stable condition. MMODAL /[id number] BONNIE
== END 2020-04-11 10:00 | disposition home or self-care (01) ==
LOC: JD.OB 05:51 → JD.SDS 05:51 → JD.MS 05:55 → JD.SDS 04-11 10:00
PROVIDERS: ATTEND Orthopaedic Surgery
DX: M17.12 Unilateral primary osteoarthritis, left knee (principal); M25.762 Osteophyte, left knee; Z11.59 Encounter for screening for other viral diseases; Z87.891 Personal history of nicotine dependence
CPT/HCPCS: 27447; 36415; 73560; 80053; 85027; 87641; 97110; 97116; 97161; 97165; 97535; 99211; A9270; C1713; C1776; J0171; J0690; J0697; J1100; J1885; J2001; J2250; J2270; J2704; J2795; J3370; J3490; J7120; U0002; 01402; 64450; J2405; J3010